=== PATIENT | female | born 1950 | race Caucasian/White ===

== ENCOUNTER → 2023-10-17 12:21 | Outpatient (CLI) | payer MEDICARE, OTHER, SELFPAY ==
--- NOTE | 2023-10-17 12:26 | DI.RAD.S_ITS ---
Bone Density Report Name: SIGRID PATHAK Age: 73 Sex: Female Ethnicity: White Date of : 1950 Indication: postmenopausal; screening for osteoporosis; Referring Provider: RACHEL ALVAREZ Study: Bone densitometry was performed. Exam Date: October 17, 2023 Accession number: [id number] Bone Density: Region BMD T-score Z-score Classification AP Spine(L1-L4) 1.093 0.4 2.8 Normal Femoral Neck (Left) 0.684 -1.5 0.6 Osteopenia Total Hip (Left) 0.784 -1.3 0.4 Osteopenia Femoral Neck (Right) 0.703 -1.3 0.7 Osteopenia Total Hip (Right) 0.838 -0.9 0.9 Normal Total Hip Mean 0.811 -1.1 0.7 Osteopenia World Health Organization criteria for BMD impression classify patients as: Normal (T-score at or above -1.0), Osteopenia (T-score between -1.0 and -2.5), or Osteoporosis (T-score at or below -2.5). 10-year Fracture Risk(1): Major Osteoporotic Fracture 11% Hip Fracture 2.1% Reported Risk Factors: [place] (), Neck BMD=0.684, BMI=23.0 (1) FRAX(R) Version 3.08. Fracture probability calculated for an untreated patient. Fracture probability may be lower if the patient has received treatment. Impression: The patient has low bone mass, based on the Left Femoral Neck T-score. The patient has an estimated ten-year risk of hip fracture of 2.1% and an estimated ten-year risk of major fracture of 11%, based on the WHO FRAX algorithm. Discussion: BONE DENSITY IS LOW AT ONE OR MORE SKELETAL SITES. This patient's lowest T-score is low at one or more skeletal sites. It meets the World Health Organization's (WHO) criteria for low bone mass (T-score between -1.0 and -2.5). The patient's 10-year risk of fracture as calculated by FRAX is less than the threshold where pharmacological therapy is recommended by the National Osteoporosis Foundation (NOF). However, all treatment decisions require clinical judgment and consideration of individual patient factors, including patient preferences, comorbidities, previous drug use, risk factors not captured in the FRAX model (e.g., frailty, falls, vitamin D deficiency, increased bone turnover, interval significant decline in bone density) and possible under or overestimation of fracture risk by FRAX. The patient should follow a healthful lifestyle (good nutrition with adequate calcium and vitamin D, and appropriate weight-bearing exercise). Follow-Up: Consider repeating this study in 2 to 3 years to reassess this patient's status, or sooner if there is some new clinical indication. Reported by: LAWANDA PICKETT M.D. on 10/17/2023 2:39:00 PM.
== END ==
LOC: RAD 12:25
PROVIDERS: PCP Internal Medicine; Referring Provider Orthopaedic Surgery; Visit Provider Orthopaedic Surgery
DX: M17.12 Unilateral primary osteoarthritis, left knee; M85.852 Other specified disorders of bone density and structure, left thigh; Z78.0 Asymptomatic menopausal state
CPT/HCPCS: 77080

== ENCOUNTER 2024-04-10 03:09 | Inpatient (IN) | payer MEDICARE, OTHER, SELFPAY ==
[2024-04-10 03:36] VITALS: BMI 23.5
[2024-04-10 06:02] VITALS: BP 153/70; PULSE 76; RESP 18; TEMP 36.9; O2SAT 99
--- NOTE | 2024-04-10 06:37 | PM.HP.1 ---
History of Present Illness History of Present Illness Chief complaint: cellulitis Narrative: 73 female with past medical history of recent left knee resplacement, C3-C4 cervical fusion and hypochlorydria was transfer here from outside ER for concern for necrotizing fasciitis. Per report, the patient recently had a left knee replacement this past Friday03/29/24 here at our hospital. The patient reports that initially she was doing relatively well post op. However, over the last few days, the patient noted that she has swelling and redness around her left knee. The patient also has some discomfort in her left knee but not pain per her report. The patient was concern and came into [facility] ER to have it evaluated. Otherwise, the patient denies any fever, chills, nausea, vomiting, chest pain or shortness of breath. At [facility] ER, the patient initially was diagnosed with Cellulitis and IV antiobitics were given. The report was that the patient was hemodynamically stable without sign of sepsis. However, the ER physician there re-evaluated the patient left leg and noticed that within only one hour, the redness has spread upward up to her left thigh. The ER physician was concern and got a STAT CT scan which was concerning for nercotizing fasciitis and also with some gas. our Orthopedic surgeon Dr. Xiong was contacted immediately and recommended that the patient be transfer to our hospital for further surgical evaluation. Note, the patient was given IV Vancomycin/Zosny/Clindamycin. [facility] Social History household members: none Smoking Status: Former smoker alcohol intake: current Meds Home Medications and Allergies Allergies Allergy/AdvReac Type Severity Reaction Status Date / Time No Known Drug Allergies Allergy Verified 04/10/24 06:39 Review of Systems Review of Systems Narrative: 12 points of ROS are negative except for what was mentioned per HPI. Exam Vital Signs (past 8 hours): - 04/10/24 06:02 Temperature 98.5 F Pulse Rate 76 Respiratory Rate 18 Blood Pressure 153/70 H Pulse Oximetry 99 Oxygen Flow Rate 0 Oxygen Flow Rate 0 Narrative Exam Narrative: GENERAL: The patient is not in any acute distressed. Awake and alert. HEENT: Nonicteric sclerae, PERRLA, EOMI. Oropharynx clear. Moist mucous membranes. Conjunctivae appear well perfused. HEART: Regular rate and rhythm without murmurs. No lower extremities edema. LUNGS: Clear to auscultation bilaterally. No wheezing, crackles or rhonchi ABDOMEN: Soft, positive bowel sounds, nontender. SKIN: Left leg has dressing above to below left knee with surrounding swelling and redness to medial aspect of left tigh NEUROLOGIC: AxO x 3. Cranial nerves II-XII intact without motor/sensory deficit. Objective Labs 04/10/24 06:40 04/10/24 06:40 Assessment & Plan Assessment & Plan narrative: Left knee (recent knee replacement 03/29/24) cellulitis with concerning necrotizing fasciitis and subcutaneous gas. Admit the patient to medical telemetry inpatient. Our Orthopedic surgeon Dr. Xiong was contacted immediately and recommended that the patient be transfer to our hospital for further surgical evaluation. Note, the patient was given IV Vancomycin/Zosny/Clindamycin. Continue current IV antibiotics. Appreciates Dr. Xiong for further management and input. Monitor for sepsis. IVF DVT PPx hep SQ Code status full code Disposition home in about 3 days. Time-Based Coding :: [TOTAL MINUTES] spent with patient and on the chart (including review of chart, obtaining history, exam, reviewing outside data, placing orders, documenting exam and treatment plan, and counseling patient) on [DATE].
[2024-04-10 06:55] LABS: Add Manual Diff / Slide Review NO; Basophils Absolute Auto 0 /uL (0-100); Basophils Percent Auto 0.5 % (0-2); Eosinophils Absolute Auto 100 /uL (0-450); Eosinophils Percent Auto 1.3 % (2-4); Hematocrit 32.2 % (36-46); Hemoglobin 11.1 g/dL (12.0-16.0); Lymphocytes Absolute Auto 1100 /uL (1100-4500); Lymphocytes Percent Auto 18.9 % (25-40); Mean Corpuscular HGB Conc 34.4 % (30-36); Mean Corpuscular Hemoglobin 33.7 PG (26-34); Monocytes Absolute Auto 600 /uL (0-900); Monocytes Percent Auto 10.7 % (3-14); Neutrophils Absolute Auto 4100 /uL (1500-7000); Neutrophils Percent Auto 68.6 % (50-75); Platelet Count 216 X10^3/uL (150-400); Red Blood Cell Count 3.29 X10^6/uL (4.0-5.2); Red Cell Distribution Width 13.3 % (11.6-14.8)
--- NOTE | 2024-04-10 07:24 | PC.ADMIT ---
[id number] Admission Note:Pt admitted to ACU from [facility], transferred via BLS transport. Alert and oriented x 4, pleasant and cooperative. Reports pain 2/10, tolerable. Oriented to room and call light, call light within reach. The patient,Johanna Cantu,73 y/o, was given written information regarding hospital policies, unit procedures and contact persons. Patient's smoking status: Former smoker. Vital Signs - 8 hr 04/10/24 06:02 Temperature 98.5 F Pulse Rate 76 Respiratory Rate 18 Blood Pressure 153/70 H Pulse Oximetry 99 Oxygen Flow Rate 0
[2024-04-10 07:25] LABS: Alanine Aminotransferase 63 IU/L (<35); Albumin 3.8 g/dL (3.5-5.0); Albumin Globulin Ratio 1.4 (1.0-2.8); Alkaline Phosphatase 215 U/L (38-126); Aspartate Aminotransferase 60 IU/L (14-36); BUN Creatinine Ratio 19.2 (6-22); Bilirubin Total 1.1 mg/dL (0.2-1.3); Blood Urea Nitrogen 10 mg/dL (7-17); Calcium 8.9 mg/dL (8.4-10.2); Carbon Dioxide 26 mmol/L (22-32); Chloride 106 mmol/L (98-107); Estimated Glomerular Filt Rate > 60 mL/min (>60); Globulin 2.8 g/dL (1.7-4.1); Glucose 103 mg/dL (80-110); HEMOLYSIS < 15 (0-50); Potassium 3.6 mmol/L (3.4-5.1); Sodium 139 mmol/L (137-145); Total Protein 6.6 g/dL (6.3-8.2)
[2024-04-10] MEDS: CLINDAMYCIN 600 MG/50 ML PIGGYBACK 50 MG IV ×3 (07:33→23:12)
[2024-04-10] MEDS: SODIUM CHLORIDE 0.9% 1,000 ML 100 ML IV (07:33)
--- NOTE | 2024-04-10 07:40 | PM.HP.1 ---
History of Present Illness History of Present Illness Date Patient Seen: 04/10/24 Chief complaint: cellulitis Narrative: From night doctor: 73 female with past medical history of recent left knee resplacement, C3-C4 cervical fusion and hypochlorydria was transfer here from outside ER for concern for necrotizing fasciitis. Per report, the patient recently had a left knee replacement this past Friday03/29/24 here at our hospital. The patient reports that initially she was doing relatively well post op. However, over the last few days, the patient noted that she has swelling and redness around her left knee. The patient also has some discomfort in her left knee but not pain per her report. The patient was concern and came into [facility] ER to have it evaluated. Otherwise, the patient denies any fever, chills, nausea, vomiting, chest pain or shortness of breath. At [facility] ER, the patient initially was diagnosed with Cellulitis and IV antiobitics were given. The report was that the patient was hemodynamically stable without sign of sepsis. However, the ER physician there re-evaluated the patient left leg and noticed that within only one hour, the redness has spread upward up to her left thigh. The ER physician was concern and got a STAT CT scan which was concerning for nercotizing fasciitis and also with some gas. our Orthopedic surgeon Dr. Xiong was contacted immediately and recommended that the patient be transfer to our hospital for further surgical evaluation. Note, the patient was given IV Vancomycin/Zosny/Clindamycin. Additional information: There was concern regarding the possibility of fasciitis. The patient was accepted for transfer by Orthopedics. She arrived and was stable. She has had knee pain for several days and has obvious ecchymosis. Dr. Mendez saw this morning and recommended monitoring and antibiotics. The patient was seen by Dr. Hinton of Orthopedics has afternoon, she aspirated the knee and found to hematoma with no real evidence of purulence. She would reviewed images and did not really feel that this looked like a fasciitis clinically. She recommended following PCR and cultures as well as Gram stain and continue antibiotics for 24-72 hours. She will be following. [facility] Social History household members: none Smoking Status: Former smoker alcohol intake: current Meds Home Medications and Allergies Allergies Allergy/AdvReac Type Severity Reaction Status Date / Time No Known Drug Allergies Allergy Verified 04/10/24 06:39 Review of Systems Review of Systems Narrative: All else reviewed and otherwise unremarkable except as noted in the history and physical. Exam Vital Signs (past 8 hours): - 04/10/24 06:02 Temperature 98.5 F Pulse Rate 76 Respiratory Rate 18 Blood Pressure 153/70 H Pulse Oximetry 99 Oxygen Flow Rate 0 Oxygen Flow Rate 0 Narrative Exam Narrative: NAD, alert and oriented, fluent speech, calm. Normocephalic skull, EOMI, anicteric sclera, symmetric pupils. Oropharynx unremarkable, no droop. Neck supple, midline trachea, no adenopathy. Lungs clear, normal rate and effort. Heart regular, no murmur gallop or rub. Abdomen is soft, non distended and non tender. Extremities are free of edema. The right knee is swollen and there is extensive ecchymosis in the medial thigh as well as just [id number]. The knee is warm and swollen. The skin is not red. There is no crepitus. Skin is free of rash or lesions. Joints are not swollen or deformed. Judgment appears to be normal. Objective Labs 04/10/24 06:40 04/10/24 06:40 Labs: Laboratory Results - last 24 hr 04/10/24 06:40 WBC 6.0 RBC 3.29 L Hgb 11.1 L Hct 32.2 L MCV 98.0 MCH 33.7 MCHC 34.4 RDW 13.3 Plt Count 216 Neut % (Auto) 68.6 Lymph % (Auto) 18.9 L [place] % (Auto) 10.7 Eos % (Auto) 1.3 L Baso % (Auto) 0.5 Neut # (Auto) 4100 Lymph # (Auto) 1100 [place] # (Auto) 600 Eos # (Auto) 100 Baso # (Auto) 0 Sodium 139 Potassium 3.6 Chloride 106 Carbon Dioxide 26 BUN 10 Creatinine 0.52 Estimated GFR > 60 BUN/Creatinine Ratio 19.2 Glucose 103 Calcium 8.9 Total Bilirubin 1.1 AST 60 H ALT 63 H Alkaline Phosphatase 215 H Total Protein 6.6 Albumin 3.8 Globulin 2.8 Albumin/Globulin Ratio 1.4 Assessment & Plan Assessment & Plan narrative: 1. Left knee (recent knee replacement 03/29/24) hematoma, no ecchymosis. Dr. Hinton doubts fasciitis. The patient had blood aspirated from the knee today. PLAN: -Continue IV Vancomycin/Zosny/Clindamycin. -knee aspirate sent for Gram stain, culture, and PCR. -we will stay in touch with Dr. Hinton as these results become available. -weight bear as tolerated. DVT PPx hep SQ Code status full code Time-Based Coding :: 35 min spent with patient and on the chart (including review of chart, obtaining history, exam, reviewing outside data, placing orders, documenting exam and treatment plan, and counseling patient) on 04/10. Quality MIPS - Admit I confirm the patient?s Advance Care Plan is present, Code status is documented, Surrogate decision maker is in patient?s record [If Yes, STOP here]: Yes MIPS - Meds 'Current medications' to include all prescriptions, [id number] products, herbals, cannabis/cannabidiol products, and vitamin/mineral/dietary (nutritional) supplements. I have utilized all available resources to obtain, update, or review the patient?s current medications. [If Yes, STOP here]: Yes
[2024-04-10 08:00] VITALS: BP 146/72; PULSE 67; RESP 18; TEMP 36.8; O2SAT 93
[2024-04-10] MEDS: PIPERACILLIN/TAZO 3.375 GM in SODIUM CHLORIDE 0.9% 100 ML IV ×2 (09:05→16:14)
[2024-04-10] MEDS: HEPARIN 5,000 UNIT/ML VIAL 5000 UNIT SUBCUT ×2 (09:05→20:28)
--- NOTE | 2024-04-10 09:26 | PM.CN ---
History of Present Illness Consult details Date Patient Seen: 04/10/24 Time Patient Seen: 09:26 Chief complaint: cellulitis Narrative: 73-year-old female who is status post a left total knee arthroplasty. Patient had surgery on Friday with Dr. Hinton. Patient states she was doing very well and ambulating quite well. On started to notice swelling to the foot. Call the office and was told to elevate the leg. Patient states that elevation seem to just increase her pain. Swelling continued and then on Friday in the afternoon she started to develop fever and went to [facility] Emergency room. While at the hospital the swelling and cellulitis started to spread relatively rapidly. X-rays and CT scan were concerning for free air. They were concerned about necrotizing fasciitis and she was started on antibiotics. And was transferred here this morning. Today, significant improvement in the swelling and cellulitis. They had marked out the demarcation of where the cellulitis had spread and there is significant improvement compared to those markings. Patient still has a lot of swelling and now difficulty moving the knee but no sign of any drainage. Patient denies any other symptoms at this time. She has been afebrile since being at the hospital. White count has also been normal. Meds Home Medications and Allergies Allergies Allergy/AdvReac Type Severity Reaction Status Date / Time No Known Drug Allergies Allergy Verified 04/10/24 06:39 Exam Vital Signs (past 8 hours): - 04/10/24 06:02 04/10/24 08:00 Temperature 98.5 F 98.3 F Pulse Rate 76 67 Respiratory Rate 18 18 Blood Pressure 153/70 H 146/72 H Pulse Oximetry 99 93 Oxygen Flow Rate 0 Oxygen Flow Rate 0 Narrative Exam Narrative: On physical exam today obvious swelling to the left leg as well as some bruising both proximal and distal to the knee. No sign of any dehiscence at the wound site no sign of any drainage at the wound site. No sign of any blistering. Compartments are soft. Positive dorsiflexion and plantar flexion of the toes and ankle. Nontender to palpation to the posterior calf. Palpable pedal pulses. A area demarcated with a marker around the leg going all the way up towards the hip that is completely free of any cellulitis at this point. Objective Labs 04/10/24 06:40 04/10/24 06:40 Labs: Laboratory Results - last 24 hr 04/10/24 06:40 WBC 6.0 RBC 3.29 L Hgb 11.1 L Hct 32.2 L MCV 98.0 MCH 33.7 MCHC 34.4 RDW 13.3 Plt Count 216 Neut % (Auto) 68.6 Lymph % (Auto) 18.9 L [place] % (Auto) 10.7 Eos % (Auto) 1.3 L Baso % (Auto) 0.5 Neut # (Auto) 4100 Lymph # (Auto) 1100 [place] # (Auto) 600 Eos # (Auto) 100 Baso # (Auto) 0 Sodium 139 Potassium 3.6 Chloride 106 Carbon Dioxide 26 BUN 10 Creatinine 0.52 Estimated GFR > 60 BUN/Creatinine Ratio 19.2 Glucose 103 Calcium 8.9 Total Bilirubin 1.1 AST 60 H ALT 63 H Alkaline Phosphatase 215 H Total Protein 6.6 Albumin 3.8 Globulin 2.8 Albumin/Globulin Ratio 1.4 PFSH Social History household members: none Tobacco & Substance Use Smoking Status: Former smoker alcohol intake: current Assessment & Plan Assessment & Plan narrative: Patient with an acute onset of swelling and cellulitis to the left leg which has significantly improved since being started on antibiotics. At this point I do not see anything that looks like necrotizing fasciitis. Also do not see any signs of any obvious acute infection to her total knee replacement. Recommend continuing her on the IV antibiotics and if she continues to improve, we can discharge her tomorrow. Time-Based Coding :: [TOTAL MINUTES] spent with patient and on the chart (including review of chart, obtaining history, exam, reviewing outside data, placing orders, documenting exam and treatment plan, and counseling patient) on [DATE].
[2024-04-10 10:57] LABS: C-Reactive Protein Quant 13.8 mg/dL (<1.0); Procalcitonin 0.082 ng/mL (<0.5)
--- NOTE | 2024-04-10 11:41 | CM.DANOTE ---
Addendum entered by JÚNIOR Escalante 04/10/24 16:09: ADD: Ortho Dr. Hinton was able to assess pt bedside and aspirated her knee and sent off for cultures and anticipates pt to remain in the hospital for a couple days for IV-Abx and hopeful pt will make progress and not need I&D. Pt confirms she is appreciative that Dr. Hinton came in to see her and pt hopeful to work with PT Friday on mobility. BF Original Note: Patient is a 73 yo female who was admitted INPT Status on 04/10/24 for Leg Infection. Pt has [facility] and [facility] for insurance and her PCP is Val Dozier. EMR was reviewed. Per MD, pt with recent knee surgery and went to [facility] ED and concern for necrotising faciitis vs cellulitis and transferred to [facility] for SNWO consultation. Pt on IV-Abx. Per Ortho Consult, pt's cellulitis appears to be improving with IV-Abx and no acute concerns for hardware infection or faciitis and to continue IV-Abx at this time. SW met bedside with pt and explained role and she confirms she lives in [facility] [facility] and no local family but a big friend support group. Pt confirms that she had TKA on 04/05/[address] Hinton at [facility] location in [facility] and discharged home same day via friend POV. Pt had friend staying with her initially but she was ambulating well and did not need assist and was attending outpt PT. Pt denies hx of HH or SNF and preference is home via friend POV when stable and to continue her outpt PT but aware that PT eval likely will take place prior to d/c due to her swelling and reduced ambulation the past couple days. Pt hopeful to have Dr. Hinton consult prior to discharge. Plan: SW to follow closely for ongoing progress with IV-Abx and then likely PT eval to confirm safe d/c home with friend support and any further identified discharge planning needs. JÚNIOR Escalante Discharge Planning/Care Management CM Discharge Assessment Start: 04/10/24 11:38 Freq: Status: Active Protocol: Document 04/10/24 11:38 BF (Rec: 04/10/24 11:40 BF [id number]) Discharge Planning Assessment Assigned Gear Cutter Evy, STOCK BUYER DPOA/Assigned Designee Name none Advance Directives? No Advance Directives on File No History Provided By Patient,Medical Record Has Patient been admitted in last 30 No days? Prior Living Arrangements House Household Members none Type of transporation used prior to Drives own vehicle admit Independent with ADL's Yes Is patient alert and oriented? Yes Caregiver for Another No Community Services used prior to Physical Therapy admission: DME Already Rented / Owned FWW / Walker Patient/Family Preference OP PT Therapy Comment Pending swelling and pain, PT eval for likely continue outpt PT Barriers to Discharge No Discharge Plan Home Community Services Physical Therapy Transportation Arrangement Friend to provide transport at d/c Referrals Initiated None needed Additional Comment Pending PT eval Whiteboard Updated in Patient Room with Yes name and ext. # of Gear Cutter Review Status In Process Please Provide Date Initial DC 04/10/24 Assessment Was Performed Next Review Type Continued Stay Review
[2024-04-10 12:00] VITALS: BP 134/58; PULSE 89; RESP 18; TEMP 37.8; O2SAT 95
[2024-04-10] MEDS: VANCOMYCIN 1,250 MG/250 ML PIGGYBACK 250 MG IV ×2 (13:23→23:13)
--- NOTE | 2024-04-10 13:51 | P.PN_ITS ---
Subjective Subjective Interval history: She had some increased erythema on her left leg after a fairly vigorous day at home and increased swelling. She also had a low-grade temperature. She went to [facility] where an ultrasound was negative for a DVT. X-rays did not show evidence of a fracture. She had a normal white count and no fever at the hospital but an elevated sedimentation rate. Because of erythema along the leg which appeared to be extending proximally a CT scan was ordered which showed soft tissue swelling and some gas in the subcutaneous tissues. She notes she is doing much better but she is having knee pain. She has had a temperature to 100. She has been able to get out of bed independently to the bathroom but is having some pain with weight-bearing. She has a retired [employer] nurse. Exam Vital Signs (past 8 hours): - 04/10/24 06:02 04/10/24 08:00 04/10/24 12:00 Temperature 98.5 F 98.3 F 100.0 F H Pulse Rate 76 67 89 Respiratory Rate 18 18 18 Blood Pressure 153/70 H 146/72 H 134/58 L Pulse Oximetry 99 93 95 Oxygen Flow Rate 0 Oxygen Flow Rate 0 Narrative Exam Narrative: Left knee incision is healing well there is no drainage, she has a moderate effusion, she does have bruising on the left leg which extends up along the posterior aspect of her calf and distally, her calf is soft, there is mild swelling in the left ankle, range of motion in her knee is 0-80 degrees but she does have some pain with maximum flexion. Soft tissues are mildly tender there is no crepitus there has no obvious swelling suggestive of an abscess. There is some mild cellulitis or erythema of the leg Objective Labs 04/10/24 06:40 04/10/24 06:40 Labs: Laboratory Results - last 24 hr 04/10/24 06:40 WBC 6.0 RBC 3.29 L Hgb 11.1 L Hct 32.2 L MCV 98.0 MCH 33.7 MCHC 34.4 RDW 13.3 Plt Count 216 Neut % (Auto) 68.6 Lymph % (Auto) 18.9 L [place] % (Auto) 10.7 Eos % (Auto) 1.3 L Baso % (Auto) 0.5 Neut # (Auto) 4100 Lymph # (Auto) 1100 [place] # (Auto) 600 Eos # (Auto) 100 Baso # (Auto) 0 Sodium 139 Potassium 3.6 Chloride 106 Carbon Dioxide 26 BUN 10 Creatinine 0.52 Estimated GFR > 60 BUN/Creatinine Ratio 19.2 Glucose 103 Calcium 8.9 Total Bilirubin 1.1 AST 60 H ALT 63 H Alkaline Phosphatase 215 H C-Reactive Protein 13.8 H Total Protein 6.6 Albumin 3.8 Globulin 2.8 Albumin/Globulin Ratio 1.4 Procalcitonin 0.082 PFSH Social History household members: none Smoking Status: Former smoker alcohol intake: current Assessment & Plan Assessment and plan (1) Abscess or cellulitis of knee: Status: Acute Plan She had significant increased swelling in her left leg. Her exam suggested cellulitis. I have recommended an aspiration of her left knee. Clinically she does not have evidence of necrotizing fasciitis but may have mild cellulitis. I told her we should aspirate her knee and I will her knee was prepped with ChloraPrep then I aspirated 12 cc of bloody fluid sent it for stat Gram stain culture and sensitivity and to the [facility] for bacterial PCR. I think we should continue IV antibiotics. Think she needs to have ice on her knee. She may have a low-grade infection although she has been afebrile except for low-grade temp to 100 and has a normal white count. I anticipate we should keep her on antibiotics tomorrow and likely into Friday we will see if we get any results from the Gram stain culture and sensitivity. Time-Based Coding :: [TOTAL MINUTES] spent with patient and on the chart (including review of chart, obtaining history, exam, reviewing outside data, placing orders, documenting exam and treatment plan, and counseling patient) on [DATE].
[2024-04-10 16:00] VITALS: BP 133/64; PULSE 91; RESP 17; TEMP 37.7; O2SAT 96
--- NOTE | 2024-04-10 17:28 | PC.NURSE ---
Pt A/O. MD in to place a FELICIA dsg on left knee, IVF of ABO's infusing as per scheduled Call light w/in reach. pt calls appropriately for needs. Continue w/plan of care.
[2024-04-10] MEDS: OXYCODONE IR 5 MG TABLET PO ×2 (19:08→23:30)
[2024-04-10 20:20] VITALS: BP 118/50; PULSE 81; RESP 17; TEMP 37.2; O2SAT 95
[2024-04-10] MEDS: ACETAMINOPHEN 325 MG TABLET 650 MG PO (23:29)
[2024-04-11] VITALS (7 sets, daily range): BP systolic 109–132; BP diastolic 54–67; PULSE 63–81; RESP 15–24; TEMP 36.3–37.6; O2SAT 95–97
[2024-04-11] MEDS: PIPERACILLIN/TAZO 3.375 GM in SODIUM CHLORIDE 0.9% 100 ML IV ×3 (00:29→18:07)
[2024-04-11] MEDS: ACETAMINOPHEN 325 MG TABLET 650 MG PO ×2 (05:07→14:09)
[2024-04-11] MEDS: CLINDAMYCIN 600 MG/50 ML PIGGYBACK 50 MG IV (06:36)
--- NOTE | 2024-04-11 07:46 | PM.PN.1 ---
Subjective Subjective Interval history: S: The knee is oil process stillman but is somewhat better than yesterday and less swollen. She would fevers yesterday, these have resolved today. G stain with many WBCs and no organisms with prelim cultures no growth. Exam Vital Signs (past 8 hours): - 04/11/24 00:22 04/11/24 04:00 Temperature 98 F 97.6 F Pulse Rate 77 74 Respiratory Rate 18 17 Blood Pressure 112/54 L 109/58 L Pulse Oximetry 96 97 Oxygen Flow Rate 0 0 Oxygen Flow Rate 0 Narrative Exam Narrative: NAD, alert and oriented. Fluent speech. Lungs are clear, normal rate and effort. Heart is regular, no murmur gallop or rub. Abdomen is soft, non distended. Extremities are free of edema. KNEE: Less swollen and no warmth. Ecchymosis as described yesterday in the medial thigh. No drainage. Objective Labs 04/10/24 06:40 04/10/24 06:40 Labs: Laboratory Results - last 24 hr 04/10/24 06:40 C-Reactive Protein 13.8 H Procalcitonin 0.082 PFSH Social History household members: none Smoking Status: Former smoker alcohol intake: current Assessment & Plan Assessment & Plan narrative: 1. Left knee (recent knee replacement 03/29/24) hematoma, no ecchymosis. Dr. Hinton doubts fasciitis. Present on admission and active. PLAN: -Continue IV Vancomycin and Zosyn. Stop Clindamycin. -knee aspirate sent for Gram stain, culture, and PCR. Gram stain with WBCs, no organisms, and prelim culture no growth. -we will stay in touch with Dr. Hinton as these results become available. -weight bear as tolerated. Physical therapy assessment today GERALD: 04/12 if knee improves and cultures remained negative. DVT PPx hep SQ Code status full code Inpatient status, anticipate 2 midnights of hospital care for possible knee infection. Time-Based Coding :: [TOTAL MINUTES] spent with patient and on the chart (including review of chart, obtaining history, exam, reviewing outside data, placing orders, documenting exam and treatment plan, and counseling patient) on [DATE].
[2024-04-11] MEDS: HEPARIN 5,000 UNIT/ML VIAL 5000 UNIT SUBCUT ×2 (10:31→20:33)
--- NOTE | 2024-04-11 10:31 | PM.PNPO.1 ---
Subjective Subjective Interval history: Patient states that the left knee is much better this morning. Had some pain overnight but is doing well this morning. Had some episodes fever yesterday but is afebrile this morning. Does feel like the swelling has continued to resolve. Exam Vital Signs (past 8 hours): - 04/11/24 04:00 04/11/24 08:00 Temperature 97.6 F 97.4 F L Pulse Rate 74 63 Respiratory Rate 17 20 Blood Pressure 109/58 L 113/65 Pulse Oximetry 97 96 Oxygen Flow Rate 0 0 Oxygen Flow Rate 0 Narrative Exam Narrative: Swelling slightly decreased compared to yesterday's visit. Able to bend the knee but complains of tightness with flexion. Denies any fevers or chills this morning. Has been able to ambulate by herself but has not been up with physical therapy yet today. Objective Labs 04/10/24 06:40 04/10/24 06:40 Labs: Laboratory Results - last 24 hr 04/10/24 06:40 C-Reactive Protein 13.8 H Procalcitonin 0.082 PFSH Social History household members: none Smoking Status: Former smoker alcohol intake: current Assessment & Plan Post-op Postoperative Postoperative plan narrative: Patient will continue on her IV antibiotics per Dr. Hinton. Patient had her knee aspirated yesterday results are still pending. Dr. Hinton will re-evaluate her tomorrow and determine if she is okay to go home or if any additional treatment as needed.
[2024-04-11 10:49] LABS: Add Manual Diff / Slide Review NO; Basophils Absolute Auto 0 /uL (0-100); Basophils Percent Auto 0.5 % (0-2); Eosinophils Absolute Auto 100 /uL (0-450); Eosinophils Percent Auto 1.8 % (2-4); Hematocrit 31.7 % (36-46); Hemoglobin 10.9 g/dL (12.0-16.0); Lymphocytes Absolute Auto 1500 /uL (1100-4500); Lymphocytes Percent Auto 22.1 % (25-40); Mean Corpuscular HGB Conc 34.4 % (30-36); Mean Corpuscular Volume 98.9 fL (80-100); Monocytes Absolute Auto 900 /uL (0-900); Monocytes Percent Auto 12.8 % (3-14); Neutrophils Absolute Auto 4200 /uL (1500-7000); Neutrophils Percent Auto 62.8 % (50-75); Platelet Count 242 X10^3/uL (150-400); Red Cell Distribution Width 13.7 % (11.6-14.8); White Blood Cell Count 6.6 X10^3/uL (4.5-11.0)
[2024-04-11 11:06] LABS: Alanine Aminotransferase 97 IU/L (<35); Albumin 3.6 g/dL (3.5-5.0); Albumin Globulin Ratio 1.2 (1.0-2.8); Alkaline Phosphatase 219 U/L (38-126); Aspartate Aminotransferase 91 IU/L (14-36); BUN Creatinine Ratio 22.8 (6-22); Bilirubin Total 0.8 mg/dL (0.2-1.3); Blood Urea Nitrogen 13 mg/dL (7-17); C-Reactive Protein Quant 8.4 mg/dL (<1.0); Calcium 8.9 mg/dL (8.4-10.2); Carbon Dioxide 25 mmol/L (22-32); Chloride 109 mmol/L (98-107); Estimated Glomerular Filt Rate > 60 mL/min (>60); Globulin 2.9 g/dL (1.7-4.1); Glucose 113 mg/dL (80-110); HEMOLYSIS < 15 (0-50); Potassium 3.7 mmol/L (3.4-5.1); Sodium 139 mmol/L (137-145); Total Protein 6.5 g/dL (6.3-8.2)
[2024-04-11 11:14] LABS: Vancomycin Trough 11.1 ug/mL (10-20)
--- NOTE | 2024-04-11 11:30 | CM.DPC ---
DCP Cont. Reviewed EMR and team rounds for status updates. Per Hospitalist, pt will need 1-more day of IV antibiotics before being stable for home d/c. No CM needs identified for d/c assistance at this time.
[2024-04-11 11:56] LABS: Erythrocyte Sedimentation Rate 65 MM/HR (0-20)
[2024-04-11] MEDS: VANCOMYCIN 1,250 MG/250 ML PIGGYBACK 250 MG IV ×2 (13:34→23:47)
[2024-04-11] MEDS: VANCOMYCIN TROUGH 1 REQUEST MISC (13:45)
[2024-04-11] MEDS: OXYCODONE IR 5 MG TABLET PO ×3 (14:12→22:40)
[2024-04-11 16:01] LABS: Vancomycin Peak 30.6 ug/mL (20-40)
[2024-04-11] MEDS: SODIUM CHLORIDE 0.9% 1,000 ML 100 ML IV (18:07)
[2024-04-12] VITALS: BP 126/54; PULSE 81; TEMP 37.1; O2SAT 94
[2024-04-12] MEDS: PIPERACILLIN/TAZO 3.375 GM in SODIUM CHLORIDE 0.9% 100 ML IV ×2 (02:37→09:36)
[2024-04-12 04:00] VITALS: BP 133/65; PULSE 77; RESP 24; TEMP 37; O2SAT 93
--- NOTE | 2024-04-12 07:19 | PM.PN.1 ---
Subjective Subjective Interval history: She notes she still has stiffness in the leg and a little bit of weakness when she gets up. She has been independent getting up to the commode. She has stiffness but not severe pain. Exam Vital Signs (past 8 hours): - 04/12/24 00:00 04/12/24 04:00 Temperature 98.7 F 98.6 F Pulse Rate 81 77 Respiratory Rate 24 Blood Pressure 126/54 L 133/65 Pulse Oximetry 94 93 Oxygen Flow Rate 0 0 Oxygen Flow Rate 0 Narrative Exam Narrative: She has ecchymosis along the leg but no significant erythema she has some moderate swelling, calf to soft, dressing is dry and intact Objective Labs 04/11/24 10:40 04/11/24 10:40 Labs: Laboratory Results - last 24 hr 04/11/24 04/11/24 10:40 15:15 WBC 6.6 RBC 3.20 L Hgb 10.9 L Hct 31.7 L MCV 98.9 MCH 34.0 MCHC 34.4 RDW 13.7 Plt Count 242 Neut % (Auto) 62.8 Lymph % (Auto) 22.[address] [place] % (Auto) 12.8 Eos % (Auto) 1.8 L Baso % (Auto) 0.5 Neut # (Auto) 4200 Lymph # (Auto) 1500 [place] # (Auto) 900 Eos # (Auto) 100 Baso # (Auto) 0 ESR 65 H Sodium 139 Potassium 3.7 Chloride 109 H Carbon Dioxide 25 BUN 13 Creatinine 0.57 Estimated GFR > 60 BUN/Creatinine Ratio 22.8 H Glucose 113 H Calcium 8.9 Total Bilirubin 0.8 AST 91 H ALT 97 H Alkaline Phosphatase 219 H C-Reactive Protein 8.4 H Total Protein 6.5 Albumin 3.6 Globulin 2.9 Albumin/Globulin Ratio 1.2 Vancomycin Peak 30.6 Vancomycin Trough 11.1 PFSH Social History household members: none Smoking Status: Former smoker alcohol intake: current Assessment & Plan Assessment & Plan narrative: She is getting progressively better. Her cultures are all no growth including blood cultures. Think it is okay for her to be discharged to home today. I think she should be on Keflex 500 mg 3 times a day for 2 weeks. She should follow up with me later this week. We will ask physical therapy to work with her today prior to discharge. I think it would be helpful for her to have additional ice for her knee. I also think it would be helpful to get her a light compressive stocking. We can recheck her cultures today to make sure they are still no growth. We will follow up on the PCR when it is available through the [facility]. Time-Based Coding :: [TOTAL MINUTES] spent with patient and on the chart (including review of chart, obtaining history, exam, reviewing outside data, placing orders, documenting exam and treatment plan, and counseling patient) on [DATE].
[2024-04-12 08:00] VITALS: BP 132/62; PULSE 79; RESP 15; TEMP 36.4; O2SAT 99
--- NOTE | 2024-04-12 09:34 | PM.DS.1 ---
History of Present Illness History of Present Illness Chief complaint: cellulitis Narrative: From night doctor: 73 female with past medical history of recent left knee resplacement, C3-C4 cervical fusion and hypochlorydria was transfer here from outside ER for concern for necrotizing fasciitis. Per report, the patient recently had a left knee replacement this past Friday03/29/24 here at our hospital. The patient reports that initially she was doing relatively well post op. However, over the last few days, the patient noted that she has swelling and redness around her left knee. The patient also has some discomfort in her left knee but not pain per her report. The patient was concern and came into [facility] ER to have it evaluated. Otherwise, the patient denies any fever, chills, nausea, vomiting, chest pain or shortness of breath. At [facility] ER, the patient initially was diagnosed with Cellulitis and IV antiobitics were given. The report was that the patient was hemodynamically stable without sign of sepsis. However, the ER physician there re-evaluated the patient left leg and noticed that within only one hour, the redness has spread upward up to her left thigh. The ER physician was concern and got a STAT CT scan which was concerning for nercotizing fasciitis and also with some gas. our Orthopedic surgeon Dr. Xiong was contacted immediately and recommended that the patient be transfer to our hospital for further surgical evaluation. Note, the patient was given IV Vancomycin/Zosny/Clindamycin. Additional information: There was concern regarding the possibility of fasciitis. The patient was accepted for transfer by Orthopedics. She arrived and was stable. She has had knee pain for several days and has obvious ecchymosis. Dr. Mendez saw this morning and recommended monitoring and antibiotics. The patient was seen by Dr. Hinton of Orthopedics has afternoon, she aspirated the knee and found to hematoma with no real evidence of purulence. She would reviewed images and did not really feel that this looked like a fasciitis clinically. She recommended following PCR and cultures as well as Gram stain and continue antibiotics for 24-72 hours. She will be following. Discharge Providers Provider Date of admission: 04/10/24 03:09 Discharge Date: 04/13/24 Primary care physician: Val Dozier MD Consults: 04/12/24 07:18 Consult to Physical Therapy Evaluate & Treat Comment: wbat left lower extremity Physician Instructions: Evaluate and Treat Ortho: Dr. Hinton Discharge provider: Dominguez Vallejo MD Summary Hospital Course Discharge Diagnosis: 1. Left knee (recent knee replacement 03/29/24) hematoma, no ecchymosis. Dr. Hinton doubts fasciitis. Present on admission and improved. Hospital Course: The patient was transferred for concern for knee infection. She was started on empiric antibiotics and seen by Dr. Hinton. She did have blood cultures at [facility] which remained negative prior to transfer. There was some concern for a severe soft tissue infection on imaging at [facility]. These images were reviewed by Dr. Hinton and she felt that this was less likely. She did aspirate the knee and came up with blood. G stain revealed 3+ WBCs, no organisms. Cultures remained negative. The patient was seen by Dr. Hinton in the day of discharge who requested 14 days of oral cephalexin q.i.d.. The patient was seen by Physical therapy and will be discharged with close follow up with Dr. Hinton of Orthopedics. Status at Discharge Cognitive/behavioral status at discharge: oriented Functional status at discharge: independent ambulation Overall status at discharge: patient is back to baseline Time Spent with Patient Time spent: Greater than 30 minutes Exam Vital Signs (past 8 hours): - 04/12/24 04:00 04/12/24 08:00 Temperature 98.6 F 97.6 F Pulse Rate 77 79 Respiratory Rate 24 15 Blood Pressure 133/65 132/62 Pulse Oximetry 93 99 Oxygen Flow Rate 0 0 Oxygen Flow Rate 0 Narrative Exam Narrative: NAD, alert and oriented. Fluent speech. Lungs are clear, normal rate and effort. Heart is regular, no murmur gallop or rub. Abdomen is soft, non distended. Extremities are free of edema. The left knee has less swelling, tenderness, is not warm or red. There is ecchymosis in the medial thigh which is improved. Objective Labs 04/11/24 10:40 04/11/24 10:40 Labs: Laboratory Results - last 24 hr 04/11/24 04/11/24 10:40 15:15 WBC 6.6 RBC 3.20 L Hgb 10.9 L Hct 31.7 L MCV 98.9 MCH 34.0 MCHC 34.4 RDW 13.7 Plt Count 242 Neut % (Auto) 62.8 Lymph % (Auto) 22.1 L [place] % (Auto) 12.8 Eos % (Auto) 1.8 L Baso % (Auto) 0.5 Neut # (Auto) 4200 Lymph # (Auto) 1500 [place] # (Auto) 900 Eos # (Auto) 100 Baso # (Auto) 0 ESR 65 H Sodium 139 Potassium 3.7 Chloride 109 H Carbon Dioxide 25 BUN 13 Creatinine 0.57 Estimated GFR > 60 BUN/Creatinine Ratio 22.8 H Glucose 113 H Calcium 8.9 Total Bilirubin 0.8 AST 91 H ALT 97 H Alkaline Phosphatase 219 H C-Reactive Protein 8.4 H Total Protein 6.5 Albumin 3.6 Globulin 2.9 Albumin/Globulin Ratio 1.2 Vancomycin Peak 30.6 Vancomycin Trough 11.1 PFSH Social History household members: none Smoking Status: Former smoker alcohol intake: current Discharge Assessment & Plan Assessment and Plan Assessment: 1. Left knee (recent knee replacement 03/29/24) hematoma, no ecchymosis. Dr. Hinton doubts fasciitis. Present on admission and improved. Plan of Treatment: She will be discharged home on cephalexin 500 q.i.d. for 14 days. Follow up with Dr. Hinton within the next several days as scheduled. Discharge Plan Discharge Plan Patient Disposition: Home Provider Discharge Comment: Stable for discharge home with antibiotics as recommended by Orthopedics. Discharge orders & Medications Prescriptions: New cephalexin 500 mg capsule 500 mg PO QID Qty: 56 0RF Medication counseling provided by Pharmacist: Yes Pharmacist Comment: Counseled by Event Staff Member, Damien Devries Follow up/Referrals: Val Dozier MD [Primary Care Provider] - Activity Restrictions/Additional Instructions: WBAT Dr Hinton (Ortho), within the next 2 weeks Discharge Health Status Multidrug resistant organism: No MDRO Diet/Activity/Treatments Diet: Regular Visit Report/Discharge Packet Instructions: DI for Hematoma (Bruise) Stand Alone Forms: Patient Portal/API Discharge Data Primary Care Provider: Val Dozier
[2024-04-12] MEDS: HEPARIN 5,000 UNIT/ML VIAL 5000 UNIT SUBCUT (09:35)
[2024-04-12] MEDS: SODIUM CHLORIDE 0.9% 1,000 ML 100 ML IV (09:41)
--- NOTE | 2024-04-12 11:00 | PT.IIE ---
Current Diagnoses Cellulitis of left lower limb (04/10/24) Physical Therapy Inpatient Evaluation/Re-Eval M1 PT/OT-IP Prior Functional Status Start: 04/12/24 10:05 Freq: NEEDED Status: Active Protocol: Document 04/12/24 10:08 MB (Rec: 04/12/24 10:58 MB [id number]) Medical Review Prior Functional Status Medical History Reviewed Yes Diet/Fluid Consistency Regular Communication WNLs Mobility and Gait Before left TKA, pt lived alone and was I. Since surgery last week, a friend has been staying with her and assisting her and she has used RW with mod I and has had assistance for bathing Social History Household Members none Living Arrangements House Number of Floors (Floors) One Floor Number of Stairs To Enter/Railing? 1 platform step to enter Home Environment High Toilet,Walk in Shower Home Equipment Front Wheel Walker,Four Wheel Walker,Straight Cane,Shower Seat with Backrest,Hand Held Shower,Grab Bars In Shower Employment Status Retired M2 PT-IP Current Condition Start: 04/12/24 10:05 Freq: NEEDED Status: Active Protocol: Document 04/12/24 10:08 MB (Rec: 04/12/24 10:58 MB [id number]) Physical Therapy Current Condition Current Condition Evaluation Date 04/12/24 Treatment Diagnosis LLE cellulitis s/p TKA last week (outpatient surgery) M3 PT-IP Subjective Start: 04/12/24 10:05 Freq: NEEDED Status: Active Protocol: Document 04/12/24 10:08 MB (Rec: 04/12/24 10:58 MB [id number]) Subjective Physical Therapy Visit Type Type Initial Evaluation Visit Start Time 10:08 Visit Stop Time 10:32 Number of INVESTIGATOR OPERATOR Visits 0 Physical Therapy Visit Comments Patient Comments Pt is pleasant and asks PT questions to prepare for successful d/t home. She wants to make sure she does not overdo it at d/c. Therapy Pain Assessment Pain When Pain Assessed At Rest Pain Present Pain Present Pain Reported Location Left Lower Leg Intensity 6 Scale Used Numeric (0 - 10) M4 PT-IP Mobility and Gait Start: 04/12/24 10:05 Freq: NEEDED Status: Active Protocol: Document 04/12/24 10:08 MB (Rec: 04/12/24 10:58 MB [id number]) PT-Bed Mobility Assessment Rolling Level of Assist Standby Assistance,1 Person Assistance Supine to Sit Supine to Sit Standby Assistance,1 Person Assistance,Head of Bed Elevated,Bedrails Sit to Supine Sit to Supine Standby Assistance,1 Person Assistance Scooting Scooting to Edge of Bed Standby Assistance PT-Transfer Assessment Sit to and From Stand Sit to and from Stand Contact Guard Assistance,1 Person Assistance,Use of Upper Extremities Equipment Transfer Assistive Device Gait Belt,Front Wheeled Walker Orthotic/Prosthetic Devices or Brace: No Transfers Transfer Destination Bed Transfer Technique CGA Transfer Ability Level of Assist Contact Guard Assistance Comments Mobility Comments Pt uses gait belt under ankle to help move left leg to EOB and she uses her hand to lift leg back into bed. No active quad contraction today or knee flexion in bed and with attempted exercises Gait Assessment Gait Gait Assistance Required: Contact Guard Assist Distance (Feet) 15 Able to Maintain Weight Bearing Status No During Gait Assistive Devices Assistive Device Gait Belt,Front Wheeled Walker Orthotic/Prosthetic Devices or Brace: No Gait Deviations General Gait Pattern Antalgic,Decreased Stride Length,Decreased Feet Clearance,Flexed Trunk,Step-to Gait,Wide Based Gait Factors Limiting Gait Function Factors Limiting Gait Function Decreased Activity Tolerance, Decreased Strength,Difficulty Following Directions, Incoordination,Limited Range of Motion,Pain,Poor Balance Comments Gait Comments Decreased function left knee at this time with gait and gait is antalgic with decreased step length and foot clearance and short step to steps PT-Balance Assessment Sitting Balance and Reactions Static Sitting Balance Ability Fair Dynamic Sitting Balance Ability Fair Standing Balance and Reactions Static Standing Balance Ability Fair Dynamic Standing Balance Ability Poor Device Used RW M5 PT-IP Objective Assessments Start: 04/12/24 10:05 Freq: NEEDED Status: Active Protocol: Document 04/12/24 10:08 MB (Rec: 04/12/24 10:58 MB [id number]) Orientation Orientation/Cognition Level of Alertness Alert Orientation Name,Age,Birthday,Month,Date, Year,Day of Week,Place, Situation Language Function Ability No Deficits Noted Safety Awareness Understands Safety Issues Memory Description No Deficits Noted Gross Range of Motion Upper Extremity ROM Assessment Within Functional Limits Lower Extremity ROM Assessment Left Impaired Impairments No active quad set or knee flexion today Strength Upper Extremity Strength Assessment Within Functional Limits Lower Extremity Strength Assessment Left Impaired Ankle L DF and great toe extension 5 /5 Comments Strength Comments L knee is profoundly weak Coordination Assessment Gross Coordination Gross Coordination Impaired Muscle Tone Comments Muscle Tone Comments LLE is edematous and has bruising M6 PT-IP Treatment Start: 04/12/24 10:05 Freq: NEEDED Status: Active Protocol: Document 04/12/24 10:08 MB (Rec: 04/12/24 10:58 MB [id number]) Physical Therapy Treatment Exercises Exercises Ankle Pumps,Gluteal Sets,Quad Sets,Heel Slides Education Education Provided Weight Bearing Status,Safety M7 PT-IP Assessment and Plan Start: 04/12/24 10:05 Freq: NEEDED Status: Active Protocol: Document 04/12/24 10:08 MB (Rec: 04/12/24 10:58 MB [id number]) PT Summary Assessment and Plan Potential Rehabilitation Potential Fair Status of Condition at Evaluation Evolving Summary Impairments Pain,ROM,Strength,Balance, Coordination,Sensation,Bed Mobility,Transfers,Gait, Activity Tolerance Progress Towards Goals Slow Progress - Other Assessment Summary Pt is a 73 y/o female who underwent L TKA last week in outpatient surgical center and who then experienced LLE cellulitis. She has high pain and swelling today and quad set is trace at best and she does not demonstrate active left knee extension or flexion with mobility. She uses gait belt around foot or UEs to move left leg in and out of the bed and to EOB today. CGA for hand placement for transfers and her stepping is guarded and with small step to steps. If Dr. Hinton agrees, recommend thigh high compression to help with swelling and pain, up to 20 mmHg and ed pt on post-op exercises, short walks in the house and icing. Goals Bed Mobility Goal Independent Transfer Goal Independent,Front Wheeled Walker Gait Goal Independent,Front Wheel Walker Gait Distance 50 Other Goals Pt will ascend and descend 1 platform step with RW and no more than CGA to allow safe home entrance. Days to Meet Goals 5 Frequency of Treatment Frequency Of Treatment Once a Day Treatment Plan Physical Therapy Treatment Plan Bed Mobility Training,Transfer Training,Gait Training, Therapeutic Exercise,Balance Retraining,Post Op Education, Discharge Planning,Hot or Cold Pack,Neuromuscular Re-ed, Coordination Retraining,Manual Therapy Weight Bearing Status Weight Bearing Status Weight Bear as Tolerated Recommendations To Nursing Amount of Assist Needed 1 Person Assist Discharge Recommendations PT Discharge Recommendations Home with Assistance, Outpatient PT Transportation Needs at Discharge Private Vehicle
[2024-04-12 12:00] VITALS: BP 124/62; PULSE 75; RESP 24; TEMP 37.1; O2SAT 97
--- NOTE | 2024-04-12 12:25 | CM.DPC ---
DCP Discharge Home Per MD, pt medically stable to d/c home on PO abx today and no identified barriers to discharge. Per PT, recommend home with outpt PT. SW met bedside with pt and she confirms she is agreeable to d/c home today and her friend will provide transport around 1400 and she plans to continue with her outpt PT that is already set up. Pt denies any further discharge needs or concerns at this time. MARGARETH updated RN. Evy Hale MSW
[2024-04-12] MEDS: OXYCODONE IR 5 MG TABLET PO (13:44)
--- NOTE | 2024-04-12 15:36 | PC.NURSE ---
D/c packet reviewed with Pt. Pt agreeable with d/c. IV removed. Pt able to dress herself and confirmed that she had all of her belongings. Pt exited with friend and [employer] via w/c to private vehicle.
== END 2024-04-12 14:30 | disposition home or self-care (01) | DRG 921 ==
PROVIDERS: Hospitalist; Orthopaedic Surgery Foot and Ankle Surgery; Admitting Provider Internal Medicine; PCP Internal Medicine; Referring Provider Internal Medicine; Visit Provider Internal Medicine
DX: M96.840 Postprocedural hematoma of a musculoskeletal structure following a musculoskeletal system procedure (principal); Z96.652 Presence of left artificial knee joint
CPT/HCPCS: 36415; 80053; 80202; 84145; 85025; 85651; 86140; 87070; 87075; 87205; 87801; 97161; 97535; J1644; J2543